=== PATIENT | female | born 1970 | race Caucasian/White ===

== ENCOUNTER 2020-09-03 14:11 | Emergency (ER) | payer SELFPAY ==
[~2020-09-03] VITALS: Ht 170.2 cm; Wt 59.0 kg
--- NOTE | 2020-09-03 14:15 | NUR ---
pt BIB [facility] for questionable seizure activity after pt found laying on the ground. per repot, pt told Ross that she may have had a seizure bu that she was not sure. 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 pt FSBS [employer]ODUCTION [employer] PEGBOARD CLERK 102 upon admit, pt is alert and copperative. per report, pt told Ross to "take her to a place with good ice cream sandwiches" pt has no obvious injuries. no resp. distress. knows her name, the day of the week and the year. she knows that she is in [place]. no family at bedside pt has a blown L pupil, per report, pt has stated that thsi is her baseline after pupil surgery. no facial droop. no difficulty breathing spekaing or swallowing
--- NOTE | 2020-09-03 14:25 | NUR ---
Dr. Perkins has been to bedside for eval. c-collar removed. pt CORDERO without difficulty. no tremulous acitivity noted. pt has castorena on her chest from recent EKG leads. pt states that she was seen at a hospital yesterday
--- NOTE | 2020-09-03 14:28 | NUR ---
requested records from [facility].
[2020-09-03] MEDS ORDERED: SODIUM CHLORIDE 0.9% 1,000ML IVBOLUS ONE (14:30)
[2020-09-03] MEDS ORDERED: PLEASE ENTER HEIGHT AND WEIGHT MC SCH (14:30)
[2020-09-03 14:40] LABS: BASOPHILS % (AUTO) 1 % (0-1); EOSINOPHILS % (AUTO) 0 % (1-7); LYMPHOCYTES % (AUTO) 23 % (22-44); MD NO; MEAN CORPUSCULAR HEMOGLOBIN 27.1 pg (27.0-34.8); MEAN CORPUSCULAR HGB CONC 32.5 g/dL (32.4-35.8); MEAN PLATELET VOLUME 8.4 fL (7.4-10.4); MONOCYTES % (AUTO) 8 % (2-9); NEUTROPHILS % (AUTO) 69 % (42-75); PLATELET COUNT 249 x10^3/uL (130-400); RED BLOOD COUNT 4.41 x10^6/uL (3.82-5.3); RED CELL DISTRIBUTION WIDTH 14.8 % (9.6-15.2)
[2020-09-03 14:50] LABS: ALBUMIN 3.6 g/dL (3.4-5.0); ANION GAP 6 mmol/L (5-15); CALCIUM 8.7 mg/dL (8.5-10.1); CHLORIDE 110 mmol/L (98-107); CREATININE 0.83 mg/dL (0.55-1.02)
--- NOTE | 2020-09-03 15:00 | NUR ---
pt resting on gurney with eyes closed. no apparent distress
--- NOTE | 2020-09-03 15:48 | NUR ---
fluids infusing. no new c/o. pt resting in position of comfort. no seizure like activity noted
--- NOTE | 2020-09-03 16:08 | NUR ---
pt sleeping. no apparent distress. no seizure like activity noted
[2020-09-03 16:32] VITALS: BP 134/89
== END 2020-09-03 16:48 | disposition home or self-care (01) ==
LOC: ED 16:40
DX: G40.309 Generalized idiopathic epilepsy and epileptic syndromes, not intractable, without status epilepticus (principal); I10 Essential (primary) hypertension; E11.9 Type 2 diabetes mellitus without complications; F17.200 Nicotine dependence, unspecified, uncomplicated; R94.31 Abnormal electrocardiogram [ECG] [EKG]; R42 Dizziness and giddiness
CPT/HCPCS: 36415; 80048; 80320; 82040; 85025; 93005; 96360; 99285; J7030; G0480

== ENCOUNTER 2020-09-05 14:22 | Emergency (ER) | payer SELFPAY ==
[~2020-09-05] VITALS: Ht 160 cm; Wt 50.0 kg
--- NOTE | 2020-09-05 14:28 | NUR ---
PT BIB AMBULANCE AFTER [facility] CALLED [facility] FOR A WELLFARE CHECK AFTER PT WAS FOUND TO BE HANGING OUT AND WANDERING AROUND GRANITE [employer]STRUCTION. EMS RESPONDED TO SCENE AND FOUND PT WITH ALOC AND HYPOGLYCEMIC WITH A BLOOD SUGAR OF 50. EMS REPORTED GIVING 15 G GLUCOSE WHICH BROUGHT BS UP TO 65. PT WAS THEN TRANSPORTED TO [facility] ED. EN ROUTE, PT REPORTS HAVING HAD A SEIZURE EARLIER TODAY WITH PMH OF SZ DISORDER. PT FOUND TO HAVE KEPPRA WITH BELONGINGS. PT DENIES DRUG OR ETOH USE, BUT EMS REPORTS FINDING A SPOON IN PT PURSE WITH WHAT LOOKED TO BE DRUG RESIDUE ON IT. UPON ARRIVAL TO [facility] ED, PT PLACED IN GOWN IN [facility] AND ATTACHED TO CARDIAC AND VS MONITORS. VSS AT THIS TIME. PT FSBS RETAKEN AND FOUND TO BE 55 ON HOSPITAL GLUCOMETER. PT TOLERATING PO JUICE AT THIS TIME. EKG DONE AT BS BY COLLECTIONS AND ARCHIVES DIRECTOR. PT HAS CALL LIGHT WITHIN REACH AT THIS TIME. DR CONSTANTINO AT BS FOR PT HISTORY AND ASSESSMENT. AWAITING ORDERS AT THIS TIME. REPORT AND TRANSFER OF PT CARE TO [facility]YNCH AT THIS TIME.
--- NOTE | 2020-09-05 14:45 | NUR ---
Bedside report from RAMON[facility] Pinedo. Pt eating after FSBG 55.
[2020-09-05 14:48] LABS: BASOPHILS % (AUTO) 1 % (0-1); EOSINOPHILS % (AUTO) 0 % (1-7); LYMPHOCYTES % (AUTO) 21 % (22-44); MEAN CORPUSCULAR HEMOGLOBIN 27.3 pg (27.0-34.8); MEAN CORPUSCULAR HGB CONC 32.4 g/dL (32.4-35.8); MEAN PLATELET VOLUME 8.4 fL (7.4-10.4); MONOCYTES % (AUTO) 7 % (2-9); NEUTROPHILS % (AUTO) 72 % (42-75); PLATELET COUNT 268 x10^3/uL (130-400); RED BLOOD COUNT 4.61 x10^6/uL (3.82-5.3); RED CELL DISTRIBUTION WIDTH 14.6 % (9.6-15.2)
--- NOTE | 2020-09-05 15:05 | NUR ---
Pt has drank 2 juices and eaten peanut butter and crackers. Repeat FSBG 99. A&Ox3. States 2000.
[2020-09-05 15:06] LABS: ALANINE AMINOTRANSFERASE 23 U/L (12-78); ANION GAP 14 mmol/L (5-15); CHLORIDE 107 mmol/L (98-107); CREATININE 0.87 mg/dL (0.55-1.02)
[2020-09-05 15:07] LABS: ALKALINE PHOSPHATASE 54 U/L (45-117); BILIRUBIN,TOTAL 0.6 mg/dL (0.2-1.0); TOTAL PROTEIN 7.2 g/dL (6.4-8.2)
--- NOTE | 2020-09-05 15:59 | NUR ---
Pt ambulatory to bathroom with steady gait for UA.
[2020-09-05 17:24] VITALS: BP 125/87
--- NOTE | 2020-09-05 17:51 | NUR ---
Pt cried tears of mikey when provided with taxi voucher.
== END 2020-09-05 17:52 | disposition home or self-care (01) ==
LOC: ED 14:34
DX: R56.9 Unspecified convulsions (principal); R00.0 Tachycardia, unspecified; R41.82 Altered mental status, unspecified; I10 Essential (primary) hypertension; E11.649 Type 2 diabetes mellitus with hypoglycemia without coma
CPT/HCPCS: 36415; 80053; 80320; 82962; 83735; 85025; 93005; 99284; G0480

== ENCOUNTER 2020-09-26 18:33 | Emergency (ER) | payer MEDICAID ==
[~2020-09-26] VITALS: Ht 172.7 cm; Wt 60.0 kg
--- NOTE | 2020-09-26 19:10 | NUR ---
PT NOBLE PICKED UP WALKING ON [facility], PT DENIES SI/HI, PER EMS PT HAS BEEN WALKING ON FREE[facility]AY MULTIPLE TIMES TODAY. PT ON ALL MONITORS. FALL PRECAUTIONS IN PLACE.
[2020-09-26 20:31] VITALS: BP 146/71
== END 2020-09-26 20:33 | disposition home or self-care (01) ==
LOC: ED 19:00
DX: F20.1 Disorganized schizophrenia (principal); R00.0 Tachycardia, unspecified; F22 Delusional disorders; I10 Essential (primary) hypertension; E11.649 Type 2 diabetes mellitus with hypoglycemia without coma
CPT/HCPCS: 99284